=== PATIENT | female | born 1990 | race Caucasian/White ===

== ENCOUNTER 2020-11-06 10:16 | Day surgery (SDC) | payer BC, MEDICAID, OTHER ==
[~2020-11-06 10:16] MED LIST: Lactated Ringers 1,000 ML IV SCH
[2020-11-06] MEDS ORDERED: Bupivacaine 0.25%/EPINEPHrine 1:200,000 30 ML SDV ONE (10:46)
[2020-11-06] MEDS ORDERED: Citric Acid/Sodium Citrate Solution 30 ML Cup PO ONE (11:21)
[2020-11-06] MEDS ORDERED: Succinylcholine 200 MG/10 ML MDV ONE (11:52)
[2020-11-06] MEDS ORDERED: Ketorolac 30 MG/ML SDV ONE (11:58)
[2020-11-06] MEDS ORDERED: ceFAZolin 1 GM Vial ONE (11:58)
[2020-11-06] MEDS ORDERED: Ondansetron 4 MG/2 ML SDV ONE (11:58)
[2020-11-06] MEDS ORDERED: Propofol 200 MG/20 ML SDV ONE (11:59)
[2020-11-06] MEDS ORDERED: fentaNYL 100 MCG/2 ML SDV ONE (11:59)
[2020-11-06] MEDS ORDERED: Midazolam 1 MG/ML 2 ML SDV ONE (12:00)
[2020-11-06] MEDS ORDERED: Bupivacaine 0.25%/EPINEPHrine 1:200,000 30 ML SDV INJECT ONE ×2 (12:24)
--- NOTE | 2020-11-07 09:05 | OR ---
PREOPERATIVE DIAGNOSIS: Umbilical hernia. POSTOPERATIVE DIAGNOSIS: Umbilical hernia. PROCEDURE PERFORMED: Repair of umbilical hernia with a small Ventralex patch. COMPLICATIONS: None. SPECIMENS: None. ESTIMATED BLOOD LOSS: 10 mL. ANESTHESIA: General. DESCRIPTION OF PROCEDURE: This is done in the operating room. General anesthetic was administered. The abdomen was prepped and draped in sterile manner. A 15 blade was used to make a supraumbilical incision following the curve of the umbilicus. Cautery was used to go through the subcutaneous tissue. Hernia sac was found. Dissected from the subcutaneous tissue back to level of the fascia, truncated at the fascial level with cautery. Preperitoneal space was dissected for a few centimeters in each direction with cautery and blunt dissection. A small Ventralex patch was placed posterior to the fascia. The 2 tabs were sutured, 1 superiorly and 1 inferiorly with 0 Nurolon. U-stitches and tabs were then removed. Fascia was reapproximated over the mesh with 0 Nurolon interrupted sutures. Umbilical skin was reapproximated with 3-0 Vicryl interrupted sutures. Skin was closed with a running 4-0 Vicryl subcuticular suture and Dermabond. The patient was brought to PACU postop and will be sent home later today. BKD: 11/06/2020 12:56:23 MODL: 11/06/2020 19:05:35 /[id number]
== END 2020-11-06 14:45 | disposition home or self-care (01) ==
LOC: VM.SDS 10:16
PROVIDERS: ATTEND Surgery
DX: K42.9 Umbilical hernia without obstruction or gangrene (principal); E03.9 Hypothyroidism, unspecified; Z79.890 Hormone replacement therapy; Z01.812 Encounter for preprocedural laboratory examination; Z20.822 Contact with and (suspected) exposure to COVID-19; Z98.890 Other specified postprocedural states
CPT/HCPCS: 00750; C1781; J0330; J0690; J1885; J2250; J2405; J2704; J3010; J7120; U0002

== ENCOUNTER 2024-02-28 20:53 | Emergency (ER) | payer MEDICAID ==
[2024-02-28 23:27] LABS: BASOPHILS ABSOLUTE AUTO 0.1 x10^3/uL (0.0-0.2); BASOPHILS PERCENT AUTO 0.4 % (0.2-1.2); EOSINOPHILS PERCENT AUTO 0.2 % (0.0-4.0); HEMATOCRIT 40.7 % (33.0-47.0); HEMOGLOBIN 13.6 g/dL (12.0-16.0); IMMATURE GRAN ABSOLUTE AUTO 0.02 x10^3/uL (0.00-0.07); LYMPHOCYTES ABSOLUTE AUTO 2.4 x10^3/uL (1.0-4.8); LYMPHOCYTES PERCENT AUTO 15.3 % (25.0-50.0); MEAN CORPUSCULAR HEMOGLOBIN 28.9 pg (26.0-32.0); MEAN CORPUSCULAR HGB CONC 33.4 g/dL (32.0-36.0); MEAN CORPUSCULAR VOLUME 86.6 fL (78.0-93.0); MONOCYTES ABSOLUTE AUTO 1.1 x10^3/uL (0.0-0.8); MONOCYTES PERCENT AUTO 6.9 % (2.0-11.0); NEUTROPHILS ABSOLUTE AUTO 11.9 x10^3/uL (1.8-7.7); NEUTROPHILS PERCENT AUTO 77.1 % (50.0-80.0); PLATELET COUNT,PLT 330 x10^3/uL (130-400); WHITE BLOOD CELL COUNT,WBC 15.4 x10^3/uL (4.0-10.0)
[2024-02-28 23:28] LABS: APPEARANCE,URINE CLOUDY (CLEAR); BILIRUBIN,URINE NEGATIVE (NEGATIVE); COLOR,URINE YELLOW (YELLOW); GLUCOSE,URINE NEGATIVE (NEGATIVE); KETONES,URINE TRACE mg/dL (NEGATIVE); LEUKOCYTE ESTERASE,URINE LARGE (NEGATIVE); NITRITE,URINE POSITIVE (NEGATIVE); OCCULT BLOOD,URINE SMALL (NEGATIVE); PROTEIN,URINE 100 mg/dL (NEGATIVE)
[2024-02-28 23:33] LABS: WBC,URINE >100 /HPF (NOT SEEN)
[2024-02-28 23:34] LABS: BACTERIA,URINE MANY /HPF (NOT SEEN); MUCUS,URINE FEW /LPF (NOT SEEN); SQUAMOUS EPITHELIAL CELLS,UR FEW /HPF (NOT SEEN)
[2024-02-28 23:43] LABS: A/G RATIO 0.78; ALANINE AMINOTRANSFERASE,ALT 28 U/L (14-59); ALBUMIN 3.9 g/dL (3.4-5.0); ALKALINE PHOSPHATASE 80 U/L (46-116); ANION GAP 14.7 mmol/L (5-15); ASPARTATE AMNIOTRANSFERASE,AST 15 U/L (15-37); BILIRUBIN TOTAL 0.5 mg/dL (0.2-1.0); BLOOD UREA NITROGEN,BUN 9 mg/dL (7-18); CALCIUM 8.9 mg/dL (8.5-10.1); CARBON DIOXIDE,CO2 28 mmol/L (21-32); CHLORIDE,CL 99 mmol/L (98-107); CREATININE 0.9 mg/dL (0.55-1.02); ESTIMATED GFR 87 mL/min (>=60); GLUCOSE RANDOM 108 mg/dL (70-99); POTASSIUM,K 3.7 mmol/L (3.5-5.1); PROTEIN TOTAL,TP 8.9 g/dL (6.4-8.2); SODIUM,NA 138 mmol/L (136-145)
[2024-02-29 00:14] LABS: AMYLASE 36 U/L (25-115); LIPASE 40 U/L (19-71)
[2024-02-29] MEDS: Iopamidol 612 MG/ML 100 ML Bottle IVPUSH ONE (00:47)
[2024-02-29] MEDS: Sodium Chloride 0.9% 1,000 ML IV ONE (02:05)
[2024-02-29] MEDS: Ondansetron 4 MG/2 ML SDV IVPUSH ONE (02:12)
[2024-02-29] MEDS: Ketorolac 30 MG/ML SDV IVPUSH ONE (02:14)
[2024-02-29] MEDS: cefTRIAXone 1 GM Vial IVPUSH ONE (02:16)
[2024-02-29] MEDS: Ciprofloxacin 500 MG Tab PO ONE (02:58)
[2024-02-29] MEDS: Take Home: Acetaminophen/oxyCODONE 325-5 MG, 5 Tab Pack PO ONE (02:58)
[2024-02-29] MEDS: Take Home: Ciprofloxacin 500 MG Tab, 2 Tab Pack PO ONE (02:58)
== END 2024-02-29 03:04 | disposition swing bed (61) ==
LOC: VM.ED 20:53
DX: K80.20 Calculus of gallbladder without cholecystitis without obstruction (principal); N12 Tubulo-interstitial nephritis, not specified as acute or chronic; K59.00 Constipation, unspecified; E03.9 Hypothyroidism, unspecified; Z79.890 Hormone replacement therapy; Z79.899 Other long term (current) drug therapy
CPT/HCPCS: 36415; 74019; 74177; 80053; 81001; 81025; 82150; 83690; 85025; 87086; 87088; 87186; 96374; 96375; 99284; A9270; J0696; J1885; J2405; J7030; Q9967